=== PATIENT | female | born 1950 | race Caucasian/White ===

== ENCOUNTER 2019-04-27 09:34 | Emergency (ER) | payer MEDICARE, OTHER ==
[~2019-04-27] VITALS: Ht 165.1 cm; Wt 65.0 kg
--- NOTE | 2019-04-27 09:53 | NUR ---
PT TO ED FOR REPORTED BULGE IN VAGINA X "COUPLE WEEKS." PT STATES IT HAS BEEN GETTING BIGGER AND "WON'T STAY IN WHEN I PUSH ON IT." PT DENIES PAIN, N/V/D, FEVER AND CHILLS. PT CONNECTED TO MONITORS. VSS. NO NEEDS EXPRESSED. CALL LIGHT WITHIN REACH. EDPA TO BS FOR ASSESSMENT. ORDERS RECEIVED. PT UP SELF TO RR FOR UA COLLECTED. WILL SET UP FOR PELVIC.
--- NOTE | 2019-04-27 10:00 | NUR ---
PT UP SELF WITH STEADY GAIT TO RR TO PROVIDE UA SAMPLE. UA COLLECTED AND SENT TO LAB. VSS. PELVIC EXAM SETUP.
[2019-04-27 10:12] LABS: MICROSCOPIC NOT IND
[2019-04-27 10:17] LABS: CULTURE INDICATED? NO
--- NOTE | 2019-04-27 10:36 | NUR ---
pelvic complete. awaiting quantity surveyor consult.
[2019-04-27 11:06] VITALS: BP 115/43
--- NOTE | 2019-04-27 11:07 | NUR ---
pt resting in room with family at bs. vss. no needs expressed. call light within reach. awaiting brickmason supervisor call.
== END 2019-04-27 12:29 | disposition home or self-care (01) ==
LOC: ED 12:14
DX: N81.11 Cystocele, midline (principal); Z88.0 Allergy status to penicillin; Z90.722 Acquired absence of ovaries, bilateral; Z87.891 Personal history of nicotine dependence
CPT/HCPCS: 81003; 99283

== ENCOUNTER → 2020-11-29 | Outpatient (CLI) | payer MEDICARE, OTHER ==
[~2020-11-29] MED LIST: ALOE PO; ASCO1TAB17 PO; CETI10TA76 PO; MULT-709 PO
[2020-11-29 10:09] LABS: BASOPHILS % (AUTO) 1 % (0-1); EOSINOPHILS % (AUTO) 4 % (1-7); LYMPHOCYTES % (AUTO) 19 % (22-44); MEAN CORPUSCULAR HGB CONC 34.2 g/dL (32.4-35.8); MEAN PLATELET VOLUME 9.6 fL (7.4-10.4); MONOCYTES % (AUTO) 6 % (2-9); NEUTROPHILS % (AUTO) 70 % (42-75); PLATELET COUNT 126 x10^3/uL (130-400); RED BLOOD COUNT 4.86 x10^6/uL (3.82-5.3); RED CELL DISTRIBUTION WIDTH 12.9 % (9.6-15.2)
[2020-11-29 10:20] LABS: ANION GAP 5 mmol/L (5-15); CALCIUM 9.2 mg/dL (8.5-10.1); CHLORIDE 108 mmol/L (98-107); CREATININE 0.88 mg/dL (0.55-1.02); PROTHROMBIN TIME 10.7 Seconds (9.6-11.5)
== END | disposition home or self-care (01) ==
LOC: STAR 08:41
PROVIDERS: ATTEND Orthopaedic Surgery
DX: Z01.810 Encounter for preprocedural cardiovascular examination (principal); Z01.818 Encounter for other preprocedural examination; M25.562 Pain in left knee; Z79.01 Long term (current) use of anticoagulants; Z20.822 Contact with and (suspected) exposure to COVID-19
CPT/HCPCS: 36415; 80048; 83036; 85025; 85610; 85730; 87081; 87806; 93005; U0003; U0005; G0475